=== PATIENT | male | born 1965 | race Caucasian/White ===

== ENCOUNTER 2018-10-18 09:48 | Day surgery (SDC) | payer OTHER ==
[2018-10-18] MEDS ORDERED: LIDOCAINE 1% 300 MG/30 ML SDV SC ONE (10:05)
--- NOTE | 2018-10-18 10:16 | PDHPUP ---
History & Physical Update H&P update statement: This history and physical update is based on an assessment of the patient which was completed after admission or registration (within 24 hours), but prior to the surgery/procedure. H&P update: H&P reviewed & patient examined, no change in patient's condition since H&P completed
--- NOTE | 2018-10-18 12:23 | CPIP ---
DATE OF PROCEDURE: 10/18/2018 INDICATIONS: Syncope. PROCEDURE: Implantation of a [facility] confirm. TECHNIQUE: Following informed consent, in the fasting state, the patient was brought to the [facility]. Th e left chest was prepped and draped, and the 3rd intercostal space identified by landmarks. Lidocain e was infiltrated into the 3rd intercostal space. A #15 blade was used to make a 0.5 cm incision. T he tract was completely infiltrated with lidocaine. At this point, the Confirm was injected undernea th the skin and the skin closed with 2 ronen. Manual pressure was held. A dry dressing was then a pplied. COMPLICATIONS: None DEVICE INFORMATION: The device is a [employer] [facility] Confirm RX, reference #[id number], serial #[id number]. /[id number]
== END 2018-10-18 11:04 | disposition home or self-care (01) ==
LOC: FCATH 09:48
PROVIDERS: ATTEND Internal Medicine Cardiovascular Disease
PROC: 0JH63PZ Insertion of Cardiac Rhythm Related Device into Chest Subcutaneous Tissue and Fascia, Percutaneous Approach (ICD-10-PCS; principal; 2018-10-18)
DX: R55 Syncope and collapse (principal); I71.2 Thoracic aortic aneurysm, without rupture
CPT/HCPCS: C1764